=== PATIENT | female | born 2000 | race Caucasian/White ===

== ENCOUNTER 2019-11-15 14:53 | Inpatient (IN) ==
[~2019-11-15 14:53] MED LIST: Famotidine 20 MG/2 ML VIAL IVP PRN; Metoclopramide 10 MG/2 ML VIAL IVP PRN; Naloxone 0.4 MG/ML INJ IVP PRN; Ondansetron 4 MG/2 ML VIAL IVP PRN
[2019-11-15] MEDS ORDERED: Ringers Solution, Lactated 1,000 ML ONE (14:59)
[2019-11-15] MEDS: Ringers Solution, Lactated 1,000 ML IVC SCH ×2 (15:06→23:27)
[2019-11-15 15:29] LABS: Basophils % 0.5 %; Hematocrit 31.9 % (35.3-44.9); Hemoglobin 10.9 g/dL (11.5-15.4); Immature Granulocytes % 0.7 % (0-4); Lymphocytes # 2.2 K/mcL (0.6-4.6); Lymphocytes % 25.1 %; Mean Corpuscular HGB Conc 34.2 g/dL (31.6-35.5); Mean Corpuscular Hemoglobin 31.7 pg (28.0-33.3); Mean Corpuscular Volume 92.7 fL (83.0-100.0); Mean Platelet Volume 9.5 fL (9.4-12.4); Monocytes # 0.8 K/mcL (0.0-1.3); Monocytes % 9.4 %; Neutrophils # 5.5 K/mcL (1.6-8.9); Platelet Count 216 K/mcL (140-400); Red Blood Count 3.44 M/mcL (3.82-4.97); Red Cell Distribution Width 13.8 % (11.5-14.5); Segmented Neutrophils % 64.3 %; White Blood Count 8.6 K/mcL (4.3-11.1)
[2019-11-15 15:34] LABS: Amphetamine Screen,Urine Negative ng/mL (Cutoff=1000); Barbiturate Screen,Urine Negative ng/mL (Cutoff=200); Benzodiazepines Screen,Urine Negative ng/mL (Cutoff=200); Cannabinoid Screen,Urine Negative ng/mL (Cutoff = 50); Cocaine Screen,Urine Negative ng/mL (Cutoff= 300); Opiate Screen,Urine Negative ng/mL (Cutoff=300); Phencyclidine Screen,Urine Negative ng/mL (Cutoff=25)
[2019-11-15] MEDS ORDERED: Famotidine 20 MG/2 ML VIAL IVP ONE (16:22)
[2019-11-15] MEDS ORDERED: Ondansetron 4 MG/2 ML VIAL IVP PRN (22:30)
[2019-11-15] MEDS ORDERED: *HR* FentaNYL (PF) 100 MCG/2 ML VIAL EP ONE (22:30)
[2019-11-15] MEDS ORDERED: Epidural Premix (fent/bupiv) 110 ML EP SCH (22:30)
[2019-11-15] MEDS ORDERED: Naloxone 0.4 MG/ML INJ IVP PRN (22:30)
[2019-11-15] MEDS ORDERED: Ropivacaine/PF 0.2% 20 ML VIAL EP ONE (22:30)
[2019-11-15] MEDS ORDERED: EPHEDrine 50 MG/ML VIAL IVP PRN (22:30)
[2019-11-15] MEDS: Oxytocin 20 units/ LR 1000 mL 20 UNIT/1,000 ML BAG IVC SCH (23:34)
[2019-11-16] MEDS ORDERED: *HR* FentaNYL (PF) 100 MCG/2 ML VIAL ONE (01:48)
[2019-11-16] MEDS: Ringers Solution, Lactated 1,000 ML IVC SCH ×2 (02:16→10:56)
[2019-11-16] MEDS ORDERED: EPHEDrine 50 MG/ML VIAL ONE (02:38)
[2019-11-16] MEDS: Oxytocin 20 units/ LR 1000 mL 20 UNIT/1,000 ML BAG IVC SCH (10:49)
[2019-11-16] MEDS ORDERED: Measles/Mumps/Rubella Vacc 0.5 ML VIAL SQ PRN (11:01)
[2019-11-16] MEDS ORDERED: Lanolin 7 G OINT...G. TP PRN (11:01)
[2019-11-16] MEDS ORDERED: Benzocaine/Menthol 56 GM AEROSOL SPRAY TP PRN (11:01)
[2019-11-16] MEDS: Acetaminophen 325 MG TABLET PO PRN ×2 (11:23→20:05)
[2019-11-16] MEDS: Ibuprofen 600 MG TABLET PO PRN (16:46)
[2019-11-16 18:43] LABS: Prothrombin Time 11.3 Seconds (9.4-12.1)
[2019-11-16 18:44] LABS: Basophils % 0.2 %; Hematocrit 29.8 % (35.3-44.9); Hemoglobin 10.4 g/dL (11.5-15.4); Immature Granulocytes % 0.6 % (0-4); Lymphocytes # 0.7 K/mcL (0.6-4.6); Lymphocytes % 5.2 %; Mean Corpuscular HGB Conc 34.9 g/dL (31.6-35.5); Mean Corpuscular Hemoglobin 32.3 pg (28.0-33.3); Mean Corpuscular Volume 92.5 fL (83.0-100.0); Mean Platelet Volume 9.5 fL (9.4-12.4); Monocytes # 0.6 K/mcL (0.0-1.3); Monocytes % 4.3 %; Neutrophils # 11.4 K/mcL (1.6-8.9); Platelet Count 162 K/mcL (140-400); Red Blood Count 3.22 M/mcL (3.82-4.97); Red Cell Distribution Width 13.7 % (11.5-14.5); Segmented Neutrophils % 89.7 %; White Blood Count 12.7 K/mcL (4.3-11.1)
[2019-11-16 18:46] LABS: Activated Partial Thrombo Time 27.8 Seconds (26.0-36.0)
[2019-11-17] MEDS: Ibuprofen 600 MG TABLET PO PRN ×2 (08:22→20:07)
[2019-11-17] MEDS: Prenatal Vit/FA 1 EACH TABLET PO SCH (08:22)
[2019-11-18 03:48] LABS: Basophils % 0.2 %; Eosinophils % 0.1 %; Hematocrit 30.5 % (35.3-44.9); Hemoglobin 10.4 g/dL (11.5-15.4); Immature Granulocytes % 0.8 % (0-4); Lymphocytes # 1.6 K/mcL (0.6-4.6); Lymphocytes % 11.9 %; Mean Corpuscular HGB Conc 34.1 g/dL (31.6-35.5); Mean Corpuscular Hemoglobin 32.2 pg (28.0-33.3); Mean Corpuscular Volume 94.4 fL (83.0-100.0); Mean Platelet Volume 9.5 fL (9.4-12.4); Monocytes # 0.8 K/mcL (0.0-1.3); Monocytes % 5.7 %; Neutrophils # 10.8 K/mcL (1.6-8.9); Platelet Count 185 K/mcL (140-400); Red Blood Count 3.23 M/mcL (3.82-4.97); Red Cell Distribution Width 14.2 % (11.5-14.5); Segmented Neutrophils % 81.3 %; White Blood Count 13.3 K/mcL (4.3-11.1)
[2019-11-18 04:55] LABS: Bilirubin,Urine Negative (Negative); Blood,Urine Negative (Negative); Clarity,Urine Cloudy (Clear); Color,Urine Yellow (Yellow); Glucose,Urine (UA) Normal (Normal); Ketones,Urine Negative (Negative); Leukocyte Esterase,Urine Moderate (Negative); Nitrite,Urine Positive (Negative); Protein,Urine 30 mg/dL (Neg-Trace); Urobilinogen,Urine Normal (Normal)
[2019-11-18 04:58] LABS: Bacteria,Urine Many per hpf (None-Few); Hyaline Casts,Urine Few per lpf (None-Few); Squamous Epithelial Cell,Urine Moderate per lpf (None-Few); WBC,Urine 50-100 per hpf (0-3)
[2019-11-18] MEDS: Acetaminophen 325 MG TABLET PO PRN ×2 (05:02→17:08)
[2019-11-18] MEDS: cephALEXin 500 MG CAPSULE PO SCH ×3 (06:18→19:44)
[2019-11-18] MEDS: Prenatal Vit/FA 1 EACH TABLET PO SCH (08:53)
[2019-11-18] MEDS ORDERED: Isovue-370 500 ML BOTTLE IVP ONE (10:13)
[2019-11-18 11:09] LABS: BUN/Creatinine Ratio 11 (6-26); Blood Urea Nitrogen 9 mg/dL (6-20); Carbon Dioxide 24 mEq/L (23-29); Chloride 104 mEq/L (98-107); Glucose 102 mg/dL (70-105); Osmolality,Calculated 277 (280-300); Potassium 3.6 mEq/L (3.5-5.1); Sodium 134 mEq/L (136-145); eGFR For African Americans > 60 (> 60); eGFR For Non-African Americans > 60 (> 60)
[2019-11-18] MEDS ORDERED: Ringers Solution, Lactated 1,000 ML ONE (12:03)
[2019-11-18] MEDS: Ampicillin 1,000 MG in 0.9 % Sodium Chloride Mini Bag 100 ML IVPB SCH ×3 (12:10→20:03)
[2019-11-18] MEDS: Ringers Solution, Lactated 1,000 ML IVC SCH (12:11)
[2019-11-18] MEDS: Gentamicin 300 MG in 0.9 % Sodium Chloride 100 ML IVPB SCH (12:56)
[2019-11-18] MEDS: Clindamycin 900 MG/50 ML 900 MG/50 ML IV.SOLN IVPB SCH (17:10)
[2019-11-18 18:25] LABS: Enterococcus by PCR Not Detected (Not Detect); Staphylococcus aureus by PCR Not Detected (Not Detect); Staphylococcus by PCR Not Detected (Not Detect); Streptococcus agalactiae(B)PCR Not Detected (Not Detect); Streptococcus by PCR Not Detected (Not Detect); blaKPC Carbapenem-Resist Gene Not Detected (Not Detect)
[2019-11-18 18:26] LABS: Acinetobacter baumannii by PCR Not Detected (Not Detect); Candida albicans by PCR Not Detected (Not Detect); Candida glabrata by PCR Not Detected (Not Detect); Candida krusei by PCR Not Detected (Not Detect); Candida parapsilosis by PCR Not Detected (Not Detect); Candida tropicalis by PCR Not Detected (Not Detect); Enterobacter cloacae Cmplx PCR Not Detected (Not Detect); Escherichia coli by PCR DETECTED (Not Detect); Klebsiella oxytoca by PCR Not Detected (Not Detect); Klebsiella pneumoniae by PCR Not Detected (Not Detect); Proteus by PCR Not Detected (Not Detect); Pseudomonas aeruginosa by PCR Not Detected (Not Detect); Serratia marcescens by PCR Not Detected (Not Detect); Streptococcus pneumoniae PCR Not Detected (Not Detect); Streptococcus pyogenes (A) PCR Not Detected (Not Detect)
[2019-11-19] MEDS: Clindamycin 900 MG/50 ML 900 MG/50 ML IV.SOLN IVPB SCH ×3 (00:48→16:09)
[2019-11-19] MEDS: Ampicillin 1,000 MG in 0.9 % Sodium Chloride Mini Bag 100 ML IVPB SCH ×6 (01:42→21:03)
[2019-11-19] MEDS: Prenatal Vit/FA 1 EACH TABLET PO SCH (08:17)
[2019-11-19] MEDS: cephALEXin 500 MG CAPSULE PO SCH ×2 (09:36→21:03)
[2019-11-19] MEDS: Gentamicin 300 MG in 0.9 % Sodium Chloride 100 ML IVPB SCH (12:59)
[2019-11-19] MEDS: *HR* Enoxaparin 80 MG/0.8 ML SYRINGE SQ SCH ×3 (14:43→21:03)
[2019-11-19] MEDS: Ringers Solution, Lactated 1,000 ML IVC SCH ×2 (14:53→20:56)
[2019-11-19] MEDS: Oxytocin 20 units/ LR 1000 mL 20 UNIT/1,000 ML BAG IVC SCH (20:55)
[2019-11-20] MEDS: Ampicillin 1,000 MG in 0.9 % Sodium Chloride Mini Bag 100 ML IVPB SCH ×6 (00:37→20:11)
[2019-11-20] MEDS: Clindamycin 900 MG/50 ML 900 MG/50 ML IV.SOLN IVPB SCH ×3 (01:21→17:20)
[2019-11-20] MEDS: Ringers Solution, Lactated 1,000 ML IVC SCH ×2 (04:29→15:25)
[2019-11-20 05:49] LABS: Basophils % 0.6 %; Eosinophils # 0.4 K/mcL (0.0-0.6); Eosinophils % 6.5 %; Hematocrit 25.2 % (35.3-44.9); Immature Granulocytes % 2.3 % (0-4); Lymphocytes # 1.7 K/mcL (0.6-4.6); Lymphocytes % 25.9 %; Mean Corpuscular HGB Conc 34.1 g/dL (31.6-35.5); Mean Corpuscular Hemoglobin 30.9 pg (28.0-33.3); Mean Corpuscular Volume 90.6 fL (83.0-100.0); Mean Platelet Volume 9.6 fL (9.4-12.4); Monocytes # 0.8 K/mcL (0.0-1.3); Monocytes % 11.5 %; Neutrophils # 3.5 K/mcL (1.6-8.9); Platelet Count 173 K/mcL (140-400); Red Blood Count 2.78 M/mcL (3.82-4.97); Red Cell Distribution Width 13.1 % (11.5-14.5); Segmented Neutrophils % 53.2 %
[2019-11-20 05:50] LABS: Hemoglobin 8.6 g/dL (11.5-15.4); White Blood Count 6.6 K/mcL (4.3-11.1)
[2019-11-20] MEDS: *HR* Enoxaparin 80 MG/0.8 ML SYRINGE SQ SCH ×2 (06:13→18:03)
[2019-11-20] MEDS: cephALEXin 500 MG CAPSULE PO SCH ×2 (07:42→21:03)
[2019-11-20] MEDS: Prenatal Vit/FA 1 EACH TABLET PO SCH (07:42)
[2019-11-20] MEDS ORDERED: Aminoglycoside Consult 1 EACH MC ONE (07:59)
[2019-11-20] MEDS: Gentamicin 300 MG in 0.9 % Sodium Chloride 100 ML IVPB SCH (15:22)
[2019-11-21] MEDS: Ampicillin 1,000 MG in 0.9 % Sodium Chloride Mini Bag 100 ML IVPB SCH (00:02)
[2019-11-21] MEDS: Clindamycin 900 MG/50 ML 900 MG/50 ML IV.SOLN IVPB SCH (00:40)
[2019-11-21] MEDS: *HR* Enoxaparin 80 MG/0.8 ML SYRINGE SQ SCH (06:34)
[2019-11-21] MEDS: Prenatal Vit/FA 1 EACH TABLET PO SCH (07:41)
[2019-11-21] MEDS: cephALEXin 500 MG CAPSULE PO SCH (07:41)
[2019-11-21 12:36] VITALS: BP 121/83
== END 2019-11-21 16:00 | disposition home or self-care (01) | DRG 560 ==
LOC: 1NENULAB → 1NENUOBS 11-16 14:04
PROVIDERS: ADMIT Registered Nurse; ATTEND Registered Nurse